=== PATIENT | female | born 2000 | race Caucasian/White ===

== ENCOUNTER 2019-01-12 14:16 | Outpatient (CLI) | payer OTHER ==
--- NOTE | 2019-01-12 14:52 | RAD ---
EXAM: AP pelvis and bilateral hips: INDICATIONS: Left hip pain COMPARISON: None. FINDINGS: Femoral heads appear normally maintained. Acetabula appear normal. No fracture or osseous a bnormality. IMPRESSION: No acute finding
== END 2019-01-12 14:17 | disposition home or self-care (01) ==
LOC: SCSRAD 14:16
PROVIDERS: ATTEND Family Medicine
DX: M25.552 Pain in left hip (principal)
CPT/HCPCS: 73522